=== PATIENT | male | born 1990 | race African-American/Black ===

== ENCOUNTER 2021-05-04 14:13 | Emergency (ER) | payer OTHER ==
[~2021-05-04] VITALS: Ht 172.7 cm; Wt 70.0 kg
--- NOTE | 2021-05-04 16:30 | RAD ---
EXAMINATION: CT ABDOMEN+PELVIS WO CLINICAL HISTORY: Left lower quadrant pain, hx of left inguinal hernia. TECHNIQUE: Imaging of the abdomen and pelvis was performed without intravenous contrast using standar d technique, scanning from just above the dome of the diaphragm to the symphysis pubis. Unenhanced i maging is limited for the evaluation of some intra-abdominal and pelvic pathology. CT Dose Reduction Employed: One or more of the following individualized dose reduction techniques wer e utilized for this examination: 1. Automated exposure control 2. Adjustment of the mA and/or kV ac cording to patient size 3. Use of iterative reconstruction technique. COMPARISON: None FINDINGS: Visualized heart and lungs unremarkable. Liver, gallbladder, pancreas, spleen, adrenal glands, and kidneys unremarkable. Minimally filled urinary bladder suboptimally evaluated. No dilated bowel. Appendix within normal limits. No abdominal aortic or iliac artery aneurysm. Tiny fat-containing periumbilical hernia. No inguinal hernia. Left scrotal surgical clip. No evidence of acute osseous abnormality. IMPRESSION: No evidence of acute abdominopelvic abnormality on limited noncontrast evaluation. Electronically signed by: Adolph Moe DO (05/04/2021 4:27 PM) [facility]
[2021-05-04] MEDS ORDERED: HYDROcodone/APAP 5/325MG 1 TAB TABLET PO ONE (17:30)
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
[2021-05-04 17:52] LABS: BILIRUBIN,URINE NEGATIVE (NEG); CLARITY,URINE CLEAR; COLOR,URINE YELLOW; NITRITE,URINE NEGATIVE (NEG); PH,URINE 7.5 (<5.0-8.0); PROTEIN,URINE NEGATIVE (NEG-TRACE)
[2021-05-04 17:54] LABS: BACTERIA,URINE 0 /HPF (0-FEW); RBC,URINE 20-40 /HPF (0-2)
[2021-05-04 17:55] LABS: SPERM,URINE PRESENT /HPF
[2021-05-04 18:30] VITALS: BP 133/75
== END 2021-05-04 19:05 ==
LOC: ER 14:13
DX: R10.32 Left lower quadrant pain (principal); N50.812 Left testicular pain; M79.605 Pain in left leg; F17.200 Nicotine dependence, unspecified, uncomplicated
CPT/HCPCS: 74176; 81001; 99285-25

== ENCOUNTER 2021-05-09 14:26 | Emergency (ER) | payer OTHER ==
[~2021-05-09] VITALS: Ht 170.2 cm; Wt 67.8 kg
--- NOTE | 2021-05-09 16:09 | RAD ---
EXAMINATION: CT head without IV contrast INDICATION:30 years, Male, head pain after fall. COMPARISON: None TECHNIQUE: Spiral acquisition of contiguous images from the skull base to the vertex were obtained. S agittal and coronal 2D reformatted series were provided by the technologist. Soft tissue and bone win dusty algorithms were reviewed. Exposure: One or more of the following individualized dose reduction techniques were utilized for thi s examination: 1. Automated exposure control 2. Adjustment of the mA and/or kV according to patient size 3. Use of iterative reconstruction technique. FINDINGS: Neither mass, midline shift, intracranial hemorrhage, acute/subacute ischemic changes, nor extraaxial fluid collections are seen. The brain parenchyma is normal in appearance. The ventricles are normal in size. The paranasal sinuses, mastoid air cells, and middle ears are clear. The orbital contents appear within normal limits. No acute osseous abnormality. IMPRESSION: No evidence of acute intracranial abnormality. Electronically signed by: Jeison Dubose DO (05/09/2021 4:06 PM) [facility]
--- NOTE | 2021-05-09 16:20 | RAD ---
INDICATION: Reason: Shoulder pain after fall / Spl. Instructions: / History: COMPARISON: None. IMPRESSION: Left shoulder: 3 views obtained. No acute fracture or dislocation. Electronically signed by: Arcadio Hernadez MD (05/09/2021 4:17 PM) [id number]
[2021-05-09 16:44] VITALS: BP 145/77
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
[2021-05-09] MEDS ORDERED: IBUPROFEN 200 MG TABLET. PO ONE (17:00)
[2021-05-09] MEDS ORDERED: ACETAMINOPHEN 325 MG TABLET. PO ONE (17:00)
--- NOTE | 2021-05-12 14:41 | EKG ---
[facility] [address] [place] [address] Test Date: 2021-05-09 Test Time: 14:34:35 Pat Name: CARLO SMITH Department: Room: Gender: M Deputy Prosecuting Attorney: : 1990 Requested By: GUNJAN AMIN Order Number: [id number] Reading MD: Measurements Intervals [place] Rate: 71 P: 66 OK: 150 QRS: 57 QRSD: 88 T: 42 QT: 362 QTc: 393 Interpretive Statements SINUS RHYTHM OTHERWISE NORMAL ECG RI6.02 No previous ECG available for comparison
== END 2021-05-09 17:19 | disposition home or self-care (01) ==
LOC: ER 14:26 → EEVIPCON 14:26 → ER 17:19
DX: S40.012A Contusion of left shoulder, initial encounter (principal); S00.03XA Contusion of scalp, initial encounter; R51.9 Headache, unspecified; F17.200 Nicotine dependence, unspecified, uncomplicated; W18.39XA Other fall on same level, initial encounter; Y93.89 Activity, other specified; Y92.89 Other specified places as the place of occurrence of the external cause; Y99.8 Other external cause status
CPT/HCPCS: 70450; 73030; 93005; 99284-25